=== PATIENT | female | born 1955 | race Caucasian/White ===

== ENCOUNTER → 2021-01-23 | Outpatient (CLI) | payer MEDICARE, BC ==
[~2021-01-23] MED LIST: ARMOUR THYROID60 MG PO; CLARITIN 1010 MG/TAB PO; FLONASEALLERGY NS; MOTRIN 200200 MG/TAB PO; NORCO 325 MG-51 TAB PO; PROZAC 20MG20 MG PO; XYZAL5 MG PO; ZYRTEC 10MG10 MG PO
== END ==
LOC: MC.RAD 10:30
DX: Z12.31 Encounter for screening mammogram for malignant neoplasm of breast (principal); R92.0 Mammographic microcalcification found on diagnostic imaging of breast

== ENCOUNTER → 2021-01-31 | Outpatient (CLI) | payer MEDICARE, BC | LOC: MC.RAD 10:55 | DX: R92.0 Mammographic microcalcification found on diagnostic imaging of breast (principal) ==

== ENCOUNTER → 2021-02-20 | Outpatient (CLI) | payer MEDICARE, BC | LOC: MC.RAD 09:51 | DX: R92.0 Mammographic microcalcification found on diagnostic imaging of breast (principal); Z98.82 Breast implant status; Z98.890 Other specified postprocedural states ==

== ENCOUNTER → 2021-03-07 | Day surgery (SDC) | payer MEDICARE, BC | LOC: MC.RAD 14:00 | DX: D05.12 Intraductal carcinoma in situ of left breast (principal) ==

== ENCOUNTER 2021-03-12 07:37 | Day surgery (SDC) | payer MEDICARE, BC ==
[~2021-03-12] VITALS: Ht 160 cm; Wt 59.0 kg
[2021-03-12 09:12] VITALS: BP 131/76; PULSE 70; TEMP 98.1
[2021-03-12] MEDS ORDERED: PROZAC 20MG20 MG PO (09:16)
[2021-03-12] MEDS ORDERED: MOTRIN 200200 MG/TAB PO (09:16)
[2021-03-12] MEDS ORDERED: ARMOUR THYROID60 MG PO (09:16)
[2021-03-12] MEDS ORDERED: XYZAL5 MG PO (09:17)
[2021-03-12] MEDS ORDERED: FLONASEALLERGY NS (09:17)
[2021-03-12] MEDS ORDERED: CLARITIN 1010 MG/TAB PO (09:18)
[2021-03-12] MEDS ORDERED: NORCO 325 MG-51 TAB PO (10:34)
[2021-03-12 10:47] VITALS: TEMP 98.8
[2021-03-12 11:00] VITALS: BP 138/84; PULSE 80
--- NOTE | 2021-03-12 11:00 | NUR ---
Patient returns to room 2 per cart from PACU accompanied by Inés GONZALEZ and is awake and alert. Temp 97.9 and room air sats 97%. Denies pain or nausea. Dressing clean and dry on the left breast. IV infusing right hand. Taking sips of water. Sister in the room. Siderails up x2 and call light in reach.
[2021-03-12 11:15] VITALS: BP 140/83; PULSE 86
--- NOTE | 2021-03-12 11:15 | NUR ---
Sitting up and drinking water. Denies pain or nausea.
[2021-03-12 11:30] VITALS: BP 141/82; PULSE 74
--- NOTE | 2021-03-12 11:30 | NUR ---
Continues to sit up and is drinking water. Offered snack and refuses. States that I will eat at home.
[2021-03-12 11:45] VITALS: BP 134/78; PULSE 76
--- NOTE | 2021-03-12 11:45 | NUR ---
Talking with sister.
--- NOTE | 2021-03-12 12:00 | NUR ---
Eating vegetable soup tolerates well.
--- NOTE | 2021-03-12 12:15 | NUR ---
Medicated with [place] 5mg one tab for left breast incisional pain. Tolerated vegetable soup. Assisted up to the bathroom and gait steady. Voids and returns to room.
--- NOTE | 2021-03-12 12:25 | NUR ---
Patient is dressed and IV discontinued. Site is free of redness or swelling.
--- NOTE | 2021-03-12 12:28 | NUR ---
Patient dismissed to home driven by sister and taken to the front door per wheelchair and assisted into vehicle with instructions in hand.
[2021-04-17] MEDS ORDERED: ZYRTEC 10MG10 MG PO (12:56)
[2021-04-17] MEDS ORDERED: NORCO 325 MG-51 TAB PO (14:54)
== END 2021-03-12 12:28 | disposition home or self-care (01) ==
LOC: SDCO 07:37
DX: D05.12 Intraductal carcinoma in situ of left breast (principal); I10 Essential (primary) hypertension; E03.9 Hypothyroidism, unspecified; F41.1 Generalized anxiety disorder; F32.9 Major depressive disorder, single episode, unspecified; Z20.822 Contact with and (suspected) exposure to COVID-19; Z79.899 Other long term (current) drug therapy; Z80.3 Family history of malignant neoplasm of breast; Z83.3 Family history of diabetes mellitus; Z80.7 Family history of other malignant neoplasms of lymphoid, hematopoietic and related tissues
CPT/HCPCS: A4648; J0690; J1100; J2250; J2405; J2704; J3010; J7120

== ENCOUNTER 2021-03-22 07:57 | Day surgery (SDC) | payer MEDICARE, BC ==
[~2021-03-22] VITALS: Ht 160 cm; Wt 59.7 kg
[~2021-03-22 07:57] MED LIST changes: -ZYRTEC 10MG10 MG PO
[2021-03-22 09:04] VITALS: BP 133/76; PULSE 69; TEMP 98
[2021-03-22 10:40] VITALS: BP 140/66; PULSE 75; TEMP 97.2
--- NOTE | 2021-03-22 10:40 | NUR ---
[place] to [facility] [place] [facility] [place] PACU. Pt awake and alert. Denies pain or nausea. Dressing to left breast is clean, dry, and intact. IV infusing to right hand site without difficulties. VSS. Water given per pt request. Will continue to monitor. Side rails up x2. Call light within reach.
[2021-03-22 10:55] VITALS: BP 139/72; PULSE 74
--- NOTE | 2021-03-22 10:55 | NUR ---
Pt continues to rest. Denies needs. Call light within reach.
[2021-03-22 11:10] VITALS: BP 133/66; PULSE 70
--- NOTE | 2021-03-22 11:10 | NUR ---
Soup given per pt request. VSS. Pt HOB elevated for comfort and eating. Will continue to monitor. Call light within reach.
[2021-03-22 11:25] VITALS: BP 141/79; PULSE 72
--- NOTE | 2021-03-22 11:30 | NUR ---
Pt continues to rest. Consumed 100% of soup without difficulties. [place] 5mg/325mg 1 tablet po given per PRN orders to help with pain upon discharge. Will continue to monitor. Call light within reach.
--- NOTE | 2021-03-22 11:50 | NUR ---
Discharge instructions reviewed. Pt voices understanding. IV site discontinued with all parts intact. Pt up to dress. Call light within reach.
--- NOTE | 2021-03-22 12:00 | NUR ---
Pt escorted to private car via wheel chair. Pt accompanied home by her friend.
[2021-04-17] MEDS ORDERED: ZYRTEC 10MG10 MG PO (12:56)
[2021-04-17] MEDS ORDERED: NORCO 325 MG-51 TAB PO (14:54)
== END 2021-03-22 12:00 | disposition home or self-care (01) ==
LOC: SDCO 07:57
DX: D05.12 Intraductal carcinoma in situ of left breast (principal); I10 Essential (primary) hypertension; G43.809 Other migraine, not intractable, without status migrainosus; F32.9 Major depressive disorder, single episode, unspecified; F41.1 Generalized anxiety disorder; E03.9 Hypothyroidism, unspecified; Z87.891 Personal history of nicotine dependence; Z79.899 Other long term (current) drug therapy; Z79.890 Hormone replacement therapy; Z80.3 Family history of malignant neoplasm of breast; Z80.7 Family history of other malignant neoplasms of lymphoid, hematopoietic and related tissues; Z83.3 Family history of diabetes mellitus
CPT/HCPCS: A4648; J0690; J1100; J1170; J2405; J2704; J3010; J7120

== ENCOUNTER → 2022-02-04 | Outpatient (CLI) | payer MEDICARE, BC ==
[~2022-02-04] MED LIST changes: +ZYRTEC 10MG10 MG PO
== END ==
LOC: MC.RAD 10:30
DX: Z12.31 Encounter for screening mammogram for malignant neoplasm of breast (principal); Z51.0 Encounter for antineoplastic radiation therapy; Z85.3 Personal history of malignant neoplasm of breast